=== PATIENT | female | born 1950 | race Caucasian/White ===

== ENCOUNTER 2017-11-24 10:20 | Observation (INO) ==
--- NOTE | 2017-11-24 10:40 | Emergency Department Note ---
Disposition Clinical Impression: Dyspnea on exertion, Weakness Chest pain Qualifiers: Chest pain type: unspecified Qualified Code(s): R07.9 - Chest pain, unspecified Disposition: Admitted As Inpatient Condition: Good Referrals: Sancho Lund MD [Primary Care Provider] - General Adult HPI - General Chief complaint: ED Shortness of Breath/Dyspnea Stated complaint: Cough Congestion / Aches All Over Time Seen by Provider: 11/24/17 10:35 Source: patient Mode of arrival: ambulatory Limitations: no limitations Nursing Notes Reviewed: Yes Vital Signs Reviewed: Yes - History of Present Illness HPI Narrative: Patient presents today for evaluation of weakness, generalized body aches including lower back pain, chest pain which she describes as a pressure, shortness of breath with exertion and associated cough that is nonproductive in nature. Symptoms started approximately a week ago. She was seen on Sunday at urgent care and placed on steroids and antibiotics. Patient has not had any significant improvement in her overall symptoms. Biggest concern for her is her generalized weakness and lack of energy. Nothing she has done has contributed to improvement in her symptoms. Her grandson was recently diagnosed with strep throat but no other specific sick contacts. Pain Scale: 6 - Related Data Home Medications Medication Instructions Recorded Confirmed Buspirone HCl [Buspar] 7.5 mg PO BID 11/24/17 11/24/17 Lisinopril-HCTZ 20-12.5 [Prinzide 1 tab PO DAILY 11/24/17 11/24/17 20-12.5] Omeprazole [PriLOSEC] 20 mg PO DAILY 11/24/17 11/24/17 Pravastatin Sodium [Pravachol] 20 mg PO HS 11/24/17 11/24/17 Sertraline [Zoloft] 100 mg PO DAILY 11/24/17 11/24/17 Trazodone HCl 100 mg PO HS 11/24/17 11/24/17 raNITIdine HCl [Zantac] 150 mg PO BID 11/24/17 11/24/17 Allergies Allergy/AdvReac Type Severity Reaction Status Date / Time morphine Allergy Anaphylaxis Verified 11/24/17 10:26 codeine AdvReac Nausea Verified 11/24/17 10:26 Review of Systems: General: Well appearing, nontoxic, no acute distress Head: Normocephalic Atraumatic Eyes: PERRL, EOMI ENT: Airway patent, no stridor Neck: supple, no meningismus Chest: Lungs clear to auscultation bilateral Cardiac: Regular rhythm Abdomen: soft, mild generalized tenderness, nondistended; no guarding, rebound, or tenderness to percussion Musculoskeletal: Calves symmetric, nontender, no palpable cord Skin: No rash, normal skin tone Neuro: Alert and Oriented to person, place, and time; No focal deficit, CN 2-12 symmetric and intact Past Medical History - Past Medical History Medical history: Reports: hyperlipidemia, hypertension Psychiatric history: Reports: anxiety Course - Reevaluation(s) Reevaluation #1: On reevaluation patient continues to have high blood pressure. On reevaluation of the patient's overall symptoms she does have abdominal tenderness is worse in the left lower quadrant. CAT scan ordered. Patient was given a dose of labetalol. Reevaluation #2: Patient's blood pressure improved to 180 systolic. She states the pressure in her chest has improved. Laboratory evaluation is unremarkable except for hypokalemia. Hypertensive urgency considered. CAT scan is pending. Family is upset about the weight in regards to having CAT scan performed. At this time wait secondary to resources and volume. They have been reassured and I will update them with CT scan results. Reevaluation #3: CT scan results with no significant findings relating to today. No significant infection or entrapment abdominal abnormality. Patient will need to undergo further testing for her unexplained weakness dyspnea and chest pain on exertion. Vital signs unstable within the emergency department. Vital Signs Temperature 98 F 11/24/17 10:26 Pulse Rate 75 11/24/17 10:26 Respiratory Rate 16 11/24/17 10:26 Blood Pressure 207/85 11/24/17 10:26 O2 Sat by Pulse Oximetry 97 11/24/17 10:26 Temperature 98 F 11/24/17 11:09 Pulse Rate 66 11/24/17 16:01 Respiratory Rate 14 11/24/17 16:01 Blood Pressure 174/72 11/24/17 16:01 O2 Sat by Pulse Oximetry 96 11/24/17 16:01 Oxygen Delivery Oxygen Delivery Room Air Medical Decision Making - Medical Records Medical records reviewed: Yes I reviewed the patient's medical records. - Lab Data Lab results reviewed: Yes I reviewed the patient's lab results. Result diagrams: 11/24/17 11:25 11/24/17 11:25 Lab Results 11/24/17 11/24/17 11/24/17 Range/Units 11:25 11:25 11:25 WBC 12.3 H (4.3-11.1) K/mcL RBC 4.31 (3.82-4.97) M/mcL Hgb 13.2 (11.5-15.4) g/dL Hct 38.9 (35.3-44.9) % MCV 90.3 (83.0-100.0) fL MCH 30.6 (28.0-33.3) pg MCHC 33.9 (31.6-35.5) g/dL RDW 12.6 (11.5-14.5) % Plt Count 299 (140-400) K/mcL MPV 9.5 (9.4-12.4) fL Immature Gran % 1.5 (0-4) % Seg Neutrophils % 75.8 % Lymphocytes % 16.0 % Monocytes % 5.1 % Eosinophils % 1.2 % Basophils % 0.4 % Neutrophils # 9.4 H (1.6-8.9) K/mcL Lymphocytes # 2.0 (0.6-4.6) K/mcL Monocytes # 0.6 (0.0-1.3) K/mcL Eosinophils # 0.2 (0.0-0.6) K/mcL Basophils # 0.1 (0.0-0.2) K/mcL Sodium 140 (136-145) mEq/L Potassium 3.0 L (3.5-5.1) mEq/L Chloride 103 (98-107) mEq/L Carbon Dioxide 28 (23-29) mEq/L BUN 14 (8-23) mg/dL Creatinine 0.63 (0.60-1.20) mg/dL Est GFR ( Amer) > 60 (> 60) Est GFR (Non-Af Amer) > 60 (> 60) BUN/Creatinine Ratio 22 (6-26) Glucose 144 H (70-105) mg/dL Calculated Osmolality 293 (280-300) Lactic Acid (0.5-2.2) mmol/L Calcium 9.5 (8.6-10.3) mg/dL Total Bilirubin 0.4 (0.3-1.0) mg/dL AST 14 (13-39) Units/L ALT 14 (7-52) Units/L Alkaline Phosphatase 91 (34-104) Units/L Troponin I < 0.03 (< 0.04) ng/mL Serum Total Protein 6.8 (6.4-8.9) g/dL Albumin 3.8 (3.5-5.7) g/dL Globulin 3.0 (2.4-3.5) g/dL Albumin/Globulin Ratio 1.3 (1.1-2.2) TSH 2.777 (0.340-5.600) mcIU/mL Urine Color Yellow (Yellow) Urine Clarity Clear (Clear) Urine pH 6.5 (5.0-8.0) pH Units Ur Specific [place] 1.013 (1.010-1.025) Urine Protein Negative (Neg-Trace) mg/dL Urine Glucose (UA) Normal (Normal) mg/dL Urine Ketones Negative (Negative) mg/dL Urine Blood Negative (Negative) Urine Nitrite Negative (Negative) Urine Bilirubin Negative (Negative) Urine Urobilinogen Normal (Normal) mg/dL Ur Leukocyte Esterase Negative (Negative) Ur Culture Indicated? NO (NO) 11/24/17 Range/Units 11:25 WBC (4.3-11.1) K/mcL RBC (3.82-4.97) M/mcL Hgb (11.5-15.4) g/dL Hct (35.3-44.9) % MCV (83.0-100.0) fL MCH (28.0-33.3) pg MCHC (31.6-35.5) g/dL RDW (11.5-14.5) % Plt Count (140-400) K/mcL MPV (9.4-12.4) fL Immature Gran % (0-4) % Seg Neutrophils % % Lymphocytes % % Monocytes % % Eosinophils % % Basophils % % Neutrophils # (1.6-8.9) K/mcL Lymphocytes # (0.6-4.6) K/mcL Monocytes # (0.0-1.3) K/mcL Eosinophils # (0.0-0.6) K/mcL Basophils # (0.0-0.2) K/mcL Sodium (136-145) mEq/L Potassium (3.5-5.1) mEq/L Chloride (98-107) mEq/L Carbon Dioxide (23-29) mEq/L BUN (8-23) mg/dL Creatinine (0.60-1.20) mg/dL Est GFR ( Amer) (> 60) Est GFR (Non-Af Amer) (> 60) BUN/Creatinine Ratio (6-26) Glucose (70-105) mg/dL Calculated Osmolality (280-300) Lactic Acid 2.3 H (0.5-2.2) mmol/L Calcium (8.6-10.3) mg/dL Total Bilirubin (0.3-1.0) mg/dL AST (13-39) Units/L ALT (7-52) Units/L Alkaline Phosphatase (34-104) Units/L Troponin I (< 0.04) ng/mL Serum Total Protein (6.4-8.9) g/dL Albumin (3.5-5.7) g/dL Globulin (2.4-3.5) g/dL Albumin/Globulin Ratio (1.1-2.2) TSH (0.340-5.600) mcIU/mL Urine Color (Yellow) Urine Clarity (Clear) Urine pH (5.0-8.0) pH Units Ur Specific [place] (1.010-1.025) Urine Protein (Neg-Trace) mg/dL Urine Glucose (UA) (Normal) mg/dL Urine Ketones (Negative) mg/dL Urine Blood (Negative) Urine Nitrite (Negative) Urine Bilirubin (Negative) Urine Urobilinogen (Normal) mg/dL Ur Leukocyte Esterase (Negative) Ur Culture Indicated? (NO) - Radiology Data Radiology results reviewed: Yes I reviewed the patient's radiology results. - EKG Data EKG #1 EKG attestation: Yes I reviewed and interpreted this EKG. EKG results narrative: EKG shows sinus rhythm with heart rate of 67. CA interval 164. QRS 100. QTC 414. Patient has inversions in the lateral leads. No old EKG for comparison. Limb leads were reversed. Patient has no T-wave inversions on repeat EKG.
[2017-11-24] MEDS ORDERED: 0.9 % Sodium Chloride 1,000 ML IVC ONE (11:01)
[2017-11-24 11:42] LABS: Basophils # 0.1 K/mcL (0.0-0.2); Basophils % 0.4 %; Eosinophils # 0.2 K/mcL (0.0-0.6); Eosinophils % 1.2 %; Hematocrit 38.9 % (35.3-44.9); Hemoglobin 13.2 g/dL (11.5-15.4); Immature Granulocytes % 1.5 % (0-4); Mean Corpuscular HGB Conc 33.9 g/dL (31.6-35.5); Mean Corpuscular Hemoglobin 30.6 pg (28.0-33.3); Mean Corpuscular Volume 90.3 fL (83.0-100.0); Mean Platelet Volume 9.5 fL (9.4-12.4); Monocytes # 0.6 K/mcL (0.0-1.3); Monocytes % 5.1 %; Neutrophils # 9.4 K/mcL (1.6-8.9); Platelet Count 299 K/mcL (140-400); Red Blood Count 4.31 M/mcL (3.82-4.97); Red Cell Distribution Width 12.6 % (11.5-14.5); Segmented Neutrophils % 75.8 %
[2017-11-24 11:44] LABS: Bilirubin,Urine Negative (Negative); Blood,Urine Negative (Negative); Clarity,Urine Clear (Clear); Color,Urine Yellow (Yellow); Glucose,Urine (UA) Normal (Normal); Ketones,Urine Negative (Negative); Leukocyte Esterase,Urine Negative (Negative); Nitrite,Urine Negative (Negative); PH,Urine 6.5 pH Units (5.0-8.0); Protein,Urine Negative (Neg-Trace); Specific Gravity,Urine 1.013 (1.010-1.025); Urobilinogen,Urine Normal (Normal)
[2017-11-24 12:04] LABS: Alanine Aminotransferase 14 Units/L (7-52); Albumin 3.8 g/dL (3.5-5.7); Albumin/Globulin Ratio 1.3 (1.1-2.2); Alkaline Phosphatase 91 Units/L (34-104); Aspartate Amino Transferase 14 Units/L (13-39); BUN/Creatinine Ratio 22 (6-26); Bilirubin,Total 0.4 mg/dL (0.3-1.0); Blood Urea Nitrogen 14 mg/dL (8-23); Calcium 9.5 mg/dL (8.6-10.3); Carbon Dioxide 28 mEq/L (23-29); Chloride 103 mEq/L (98-107); Glucose 144 mg/dL (70-105); Osmolality,Calculated 293 (280-300); Sodium 140 mEq/L (136-145); Total Protein 6.8 g/dL (6.4-8.9); Troponin I < 0.03 ng/mL (< 0.04); eGFR For Non-African Americans > 60 (> 60)
[2017-11-24] MEDS ORDERED: *HR* Labetalol 100 MG/20 ML MDV IVP STA (12:29)
[2017-11-24] MEDS ORDERED: Isovue-370 500 ML INFUS..BTL IV ONE (12:41)
[2017-11-24 12:58] LABS: Thyroid Stimulating Hormone 2.777 mcIU/mL (0.340-5.600)
[2017-11-24] MEDS ORDERED: Naloxone 0.4 MG/ML INJ IVP PRN (17:54)
--- NOTE | 2017-11-24 17:59 | Internal Med History&Physical ---
Date of Encounter: 11/24/17 Time of Encounter: 17:59 Internal Medicine - H&P: HPI Chief complaint: Weakness Admitted From: Home Plans for Post Hospital Care: Home History of present illness: Ms. Emanuel is a 67 year old female with HTN who presented to the ER with flu- like symptoms , myalgias, artharalgias, rhinorrhea. She states she was at her PCP's office earlier in the week and received a steroid and antibiotic shot. She has since not been feeling better, hence her improvement to the ER She denies sick contacts, she has no fever or chills, her grandson had strep throat recently, but she denies sore throat She reports compliance with her blood pressure medication but blood pressure remained uncontrolled She denies chest pressure but has a dry cough and has pleuritic chest pain when she coughs Other ROS unremarkable Work up in ER unremarkable, save for hypokalemia She will be placed on observation for bronchitic, flu-like symptoms and uncontrolled HTN She is full code Past Med Surg Social Fam HX - Past Medical History Medical history: GERD, hyperlipidemia, hypertension Psychiatric history: anxiety, depression - Past Surgical History Additional surgical history: Right Hand Carpel Tunnel - Social History Smoking Status: Never smoker Alcohol use: none Drug use: none Internal Medicine - H&P: Meds Buspirone HCl [Buspar] 7.5 mg PO BID 11/24/17 [History] Lisinopril-HCTZ 20-12.5 [Prinzide 20-12.5] 1 tab PO DAILY 11/24/17 [History] Omeprazole [PriLOSEC] 20 mg PO DAILY 11/24/17 [History] Pravastatin Sodium [Pravachol] 20 mg PO HS 11/24/17 [History] Sertraline [Zoloft] 100 mg PO DAILY 11/24/17 [History] Trazodone HCl 100 mg PO HS 11/24/17 [History] raNITIdine HCl [Zantac] 150 mg PO BID 11/24/17 [History] 3 Allergy/AdvReac Type Severity Reaction Status Date / Time morphine Allergy Anaphylaxis Verified 11/24/17 10:26 codeine AdvReac Nausea Verified 11/24/17 10:26 All Systems PM: A 10-system review of systems was performed and is negative for pertinent findings except as documented above in the HPI. - Constitutional Constitutional: as per HPI - EENT Eyes: as per HPI Ears: as per HPI Nose, mouth and throat: as per HPI - Cardiovascular Cardiovascular ROS IM: as per HPI - Respiratory Respiratory: as per HPI - Gastrointestinal Gastrointestinal: as per HPI - Genitourinary Genitourinary: as per HPI - Musculoskeletal Musculoskeletal ROS IM: as per HPI - Integumentary Integumentary IM: as per HPI - Neurological Neurological ROS: as per HPI - Hematologic/Lymphatic Hematologic/Lymphatic: as per HPI - Constitutional Vitals: Temp Pulse Resp BP Pulse Ox 98 F 66 14 174/72 96 11/24/17 11:09 11/24/17 16:01 11/24/17 16:01 11/24/17 16:01 11/24/17 16:01 General appearance: Present: A&O X 3, pleasant, no acute distress Exam: see below - Head Head exam: Present: atraumatic, normocephalic - Eye Eye exam: Present: PERRL, conjuntiva pink, sclera anicteric Pupils: Present: PERRL - Neck Neck exam general surgery: Present: supple, trachea midline. Absent: lymphadenopathy - Respiratory Respiratory exam: Present: CTAB. Absent: accessory muscle use, rales, rhonchi, wheezes - Cardiovascular Cardiovascular exam: Present: RRR, +S1, +S2. Absent: diastolic murmur, gallop, rubs, systolic murmur - GI/Abdominal GI/Abdominal exam: Present: normal bowel sounds, soft, no peritoneal signs. Absent: distended, tenderness - Extremities Exam Extremities exam: Present: warm, radial pulses palpable and symmetrical. Absent : calf tenderness, cyanotic, pedal edema - Neurological Exam Neurological exam: Present: CN II-XII intact, oriented X3, no focal deficits. Absent: pronater drift, facial droop, speech deficit - Skin Skin exam: Present: dry, intact Internal Med - H&P Results - Labs CBC & Chem 7: 11/24/17 11:25 11/24/17 11:25 Labs: Short CBC 11/24/17 Range/Units 11:25 WBC 12.3 H (4.3-11.1) K/mcL Hgb 13.2 (11.5-15.4) g/dL Hct 38.9 (35.3-44.9) % Plt Count 299 (140-400) K/mcL Neutrophils # 9.4 H (1.6-8.9) K/mcL BMP 11/24/17 11:25 Sodium 140 Potassium 3.0 L Chloride 103 Carbon Dioxide 28 BUN 14 Creatinine 0.63 Glucose 144 H Calcium 9.5 Cardiac Enzymes 11/24/17 Range/Units 11:25 Troponin I < 0.03 (< 0.04) ng/mL Liver Function 11/24/17 Range/Units 11:25 Total Bilirubin 0.4 (0.3-1.0) mg/dL AST 14 (13-39) Units/L ALT 14 (7-52) Units/L Alkaline Phosphatase 91 (34-104) Units/L Albumin 3.8 (3.5-5.7) g/dL Urine 11/24/17 Range/Units 11:25 Urine Color Yellow (Yellow) Urine Clarity Clear (Clear) Urine pH 6.5 (5.0-8.0) pH Units Ur Specific [place] 1.013 (1.010-1.025) Urine Protein Negative (Neg-Trace) mg/dL Urine Glucose (UA) Normal (Normal) mg/dL - Impressions ITS Impressions Chest X-Ray 11/24/17 11:01 IMPRESSION: No acute pneumonia. D/ / 11/24/2017 13:32:30 Edgardo Valenzuela MD / rebecca Interpreting Provider: Edgardo Valenzuela MD Abdomen/Pelvis CT 11/24/17 12:41 IMPRESSION: No acute findings. Large small bowel diverticula are suspected within the left mid abdomen. These areas do not appear to be in continuity with the colon. Fecal content within these suggests slow transit. Further evaluation with CT enterography or MR enterography may be helpful. D/ / Leandro Xavier MD / Leandro Xavier MD Interpreting Provider: Leandro Xavier MD - Assessment and plan (1) Hypokalemia Current Visit: Yes Status: Acute Assessment and plan: replaced po, check with a.m labs (2) HTN (hypertension) Current Visit: Yes Status: Chronic Assessment and plan: uncontrolled Add norvasc to home regimen, continue home meds Qualifiers: Hypertension type: essential hypertension Qualified Code(s): I10 - Essential (primary) hypertension (3) Chest pain Current Visit: Yes Status: Acute Assessment and plan: associated with dry cough CXR unremarkable Add Azithromycin for bronchitis EKG unremarkable Check Flu swab Trend trops ECHo a.m Qualifiers: Chest pain type: chest pain on breathing Qualified Code(s): R07.1 - Chest pain on breathing; R07.81 - Pleurodynia (4) Weakness Current Visit: Yes Status: Acute Assessment and plan: Improving COntinue to monitor - Time Spent With Patient Total time spent is greater than 50% in coordination of care (as documented) at patient's floor/unit and/or counseling patient:
[2017-11-24] MEDS: amLODIPine 5 MG TABLET PO SCH (21:04)
[2017-11-24] MEDS: Famotidine 20 MG TABLET PO SCH (21:04)
[2017-11-24] MEDS: Azithromycin 250 MG TABLET PO SCH (21:04)
[2017-11-24] MEDS: traZODone 50 MG TABLET PO SCH (21:04)
[2017-11-25] MEDS: amLODIPine 5 MG TABLET PO SCH (07:53)
[2017-11-25] MEDS: Lisinopril-HCTZ 20-12.5mg TABLET PO SCH (07:53)
[2017-11-25] MEDS: Famotidine 20 MG TABLET PO SCH ×2 (07:53→16:48)
[2017-11-25 07:55] LABS: BUN/Creatinine Ratio 29 (6-26); Blood Urea Nitrogen 15 mg/dL (8-23); Calcium 9.1 mg/dL (8.6-10.3); Carbon Dioxide 29 mEq/L (23-29); Chloride 105 mEq/L (98-107); Chol/HDL Ratio 2.7 (0-4.9); Cholesterol 153 mg/dL (< 200); Glucose 119 mg/dL (70-105); HDL Cholesterol 56 mg/dL (40-59); LDL Cholesterol,Calculated 69 mg/dL (0-99); Osmolality,Calculated 292 (280-300); Potassium 3.2 mEq/L (3.5-5.1); Sodium 140 mEq/L (136-145); Triglycerides 140 mg/dL (< 150); eGFR For Non-African Americans > 60 (> 60)
--- NOTE | 2017-11-25 11:01 | Internal Med Progress Note ---
Hospitalist Progress Note - Encounter Date of Encounter: 11/25/17 Time of Encounter: 11:00 - Subjective Interval History: 67 F placed on observation for uncontrolled HTN, chest pain and flu-like symptoms She had 4 episodes of watery diarrhea this a.m She denies abdominal discomfort, no chest pain and her flu-like symptoms have imprved trop was negative X2, ECHO is pending We will send stool for GI panel - Exam Vitals: Temp Pulse Resp BP Pulse Ox 98.3 F 67 18 175/80 95 11/25/17 07:50 11/25/17 07:50 11/25/17 07:50 11/25/17 07:50 11/25/17 07:50 Exam: Constitutional: VSS, not in any form of distress Eyes exam: Sclera white, conjunctiva clear, no lid lag, [place]. ENT exam: Moist oral mucosa Respiratory exam: CTAB Cardiovascular exam: RRR, +S1, +S2. no murmur, gallop, rubs. No chest wall tenderness GI/Abdominal exam: Soft, not tender, BS present in all extremities Musculoskeletal exam: full ROM, no atrophy or deformity noted. no edema or cynosis, warm, pulses palpable and symmetrical in UE/LE. no calf tenderness. Neurological exam: AO X3, CN II-XII grossly intact, grossly normal motor and sensory exam. Normal muscle tone and reflexes. Skin exam: No skin rash, lesions or ulcers noted. no purpura or ecchymosis. Pych: Good insight and judgment. Intact memory. AOx3. anxious affect - Assessment and Plan (1) Hypokalemia Current Visit: Yes Status: Acute Assessment and Plan: replaced po, check with a.m labs (2) HTN (hypertension) Current Visit: Yes Status: Chronic Assessment and Plan: uncontrolled COntinue Lisinopril-HCTS, Norvasc (3) Chest pain Current Visit: Yes Status: Acute Assessment and Plan: associated with dry cough CXR unremarkable Continue Azithromycin for bronchitis EKG unremarkable Flu negative, trops negative Follow ECHO (4) Weakness Current Visit: Yes Status: Acute Assessment and Plan: Improving COntinue to monitor - Time Spent with Patient Total time spent is greater than 50% in coordination of care (as documented) at patient's floor/unit and/or counseling patient: Internal Medicine: Result - Labs CBC & Chem 7: 11/24/17 11:25 11/25/17 07:02 Labs: [facility] [place] 11/25/17 07:02 Sodium 140 Potassium 3.2 L Chloride 105 Carbon Dioxide 29 BUN 15 Creatinine 0.51 L Glucose 119 H Calcium 9.1 Consult Discharge Plan - Plan Referrals: Sancho Lund MD [Primary Care Provider] - (2) HTN (hypertension) Qualifiers: Hypertension type: essential hypertension Qualified Code(s): I10 - Essential (primary) hypertension (3) Chest pain Qualifiers: Chest pain type: chest pain on breathing Qualified Code(s): R07.1 - Chest pain on breathing; R07.81 - Pleurodynia
[2017-11-25] MEDS: Azithromycin 250 MG TABLET PO SCH (18:01)
[2017-11-25] MEDS: traZODone 50 MG TABLET PO SCH (20:39)
[2017-11-26 06:41] VITALS: BP 149/72
[2017-11-26 07:35] LABS: BUN/Creatinine Ratio 32 (6-26); Blood Urea Nitrogen 20 mg/dL (8-23); Calcium 9.2 mg/dL (8.6-10.3); Carbon Dioxide 31 mEq/L (23-29); Chloride 106 mEq/L (98-107); Glucose 115 mg/dL (70-105); Osmolality,Calculated 296 (280-300); Potassium 3.9 mEq/L (3.5-5.1); Sodium 141 mEq/L (136-145); eGFR For Non-African Americans > 60 (> 60)
[2017-11-26] MEDS: amLODIPine 5 MG TABLET PO SCH (09:39)
[2017-11-26] MEDS: Lisinopril-HCTZ 20-12.5mg TABLET PO SCH (09:39)
[2017-11-26] MEDS: Famotidine 20 MG TABLET PO SCH (09:40)
--- NOTE | 2017-11-26 10:40 | Discharge Summary ---
- NOTES TO OUTPATIENT PROVIDER Notes to Outpatient Provider: Patient was admitted to observation for hypertensive urgency associated with flulike symptoms. Incidental discovery of watery diarrhea with inpatient with hypokalemia. Chest x-ray, EKG and troponin negative. ECHO was unremarkable withLVH, preserved EF and normal wall motions. Head CT unremarkable. The patient has no neurologic symptoms nor deficits. Likely viral bronchitis with diarrhea. Diarrhea has resolved, stool was not liquid enough to test for C.Diff. The patient remained afebrile, CBC and chemistry within normal limits throughout admission. Blood pressure is better controlled with addition of Norvasc to her home regimen. Discharged home with 2 more days of azithromycin for bronchitis. Follow-up with primary care physician. Orders not resulted at time of discharge: Pending orders 11/25/17 10:57 GI Panel,Stool [MOLMIC] Stat Date of Encounter: 11/26/17 Time of Encounter: 10:39 - Discharge Diagnosis (1) Hypokalemia Priority: Primary Status: Resolved (2) HTN (hypertension) Priority: Secondary Status: Chronic Qualifiers: Hypertension type: essential hypertension Qualified Code(s): I10 - Essential (primary) hypertension (3) Chest pain Priority: Primary Status: Resolved Qualifiers: Chest pain type: chest pain on breathing Qualified Code(s): R07.1 - Chest pain on breathing; R07.81 - Pleurodynia (4) Weakness Priority: Primary Status: Resolved Hospital course: Ms. Emanuel is a 67 year old female Patient was admitted to observation for hypertensive urgency associated with flulike symptoms. Incidental discovery of watery diarrhea with inpatient with hypokalemia. Chest x-ray, EKG and troponin negative. ECHO was unremarkable withLVH, preserved EF and normal wall motions. Head CT unremarkable. The patient has no neurologic symptoms nor deficits. Likely viral bronchitis with diarrhea. Diarrhea has resolved, stool was not liquid enough to test for C.Diff. Abdomen CT on arrival showed diverticulosis, no diverticulitis The patient remained afebrile, CBC and chemistry within normal limits throughout admission. Blood pressure is better controlled with addition of Norvasc to her home regimen. Discharged home with 2 more days of azithromycin for bronchitis. She is educated to represent to the ER if she develops fever, abdominal symptoms or recurrent chest pain, or diarrhea 4 episodes per day. Follow-up with primary care physician. Discharge discussed with: patient, nurse - Time Spent with Patient Total time spent providing and/or coordinating discharge services: Less than 30 minutes - Discharge Medications Prescriptions: Amlodipine Besylate 10 mg PO DAILY #30 tablet Azithromycin [Zithromax] 500 mg PO Q24H 3 Days #6 tablet Home Medications: Buspirone HCl [Buspar] 7.5 mg PO BID 11/24/17 [History] Lisinopril-HCTZ 20-12.5 [Prinzide 20-12.5] 1 tab PO DAILY 11/24/17 [History] Omeprazole [PriLOSEC] 20 mg PO DAILY 11/24/17 [History] Pravastatin Sodium [Pravachol] 20 mg PO HS 11/24/17 [History] Sertraline [Zoloft] 100 mg PO DAILY 11/24/17 [History] Trazodone HCl 100 mg PO HS 11/24/17 [History] raNITIdine HCl [Zantac] 150 mg PO BID 11/24/17 [History] Amlodipine Besylate 10 mg PO DAILY #30 tablet 11/26/17 [Rx] Azithromycin [Zithromax] 500 mg PO Q24H 3 Days #6 tablet 11/26/17 [Rx] Allergies/Adverse Reactions: 3 Allergy/AdvReac Type Severity Reaction Status Date / Time morphine Allergy Anaphylaxis Verified 11/24/17 10:26 codeine AdvReac Nausea Verified 11/24/17 10:26 Date of admission: 11/24/17 19:05 Primary care physician: Sancho Lund MD Discharging clinician: Bradford Hardwick Anticipated date of discharge: 11/26/17 - Constitutional Vitals: Temp Pulse Resp BP Pulse Ox 98.0 F 71 15 149/72 94 11/26/17 06:40 11/26/17 06:40 11/26/17 06:40 11/26/17 06:40 11/26/17 06:40 General appearance: Present: A&O X 3, pleasant, no acute distress Exam: see below - Head Head exam: Present: atraumatic, normocephalic - Eye Eye exam: Present: PERRL, conjuntiva pink, sclera anicteric Pupils: Present: PERRL - Neck Neck exam general surgery: Present: supple, trachea midline. Absent: lymphadenopathy - Respiratory Respiratory exam: Present: CTAB. Absent: accessory muscle use, rales, rhonchi, wheezes - Cardiovascular Cardiovascular exam: Present: RRR, +S1, +S2. Absent: diastolic murmur, gallop, rubs, systolic murmur - GI/Abdominal GI/Abdominal exam: Present: normal bowel sounds, soft, no peritoneal signs. Absent: distended, tenderness - Extremities Exam Extremities exam: Present: warm, radial pulses palpable and symmetrical. Absent : calf tenderness, cyanotic, pedal edema - Neurological Exam Neurological exam: Present: CN II-XII intact, oriented X3, no focal deficits. Absent: pronater drift, facial droop, speech deficit - Skin Skin exam: Present: dry, intact - Patient Status Disposition: Home, Self-Care Condition: Good Functional capacity at discharge: independent ambulation Overall status at discharge: patient is progressing back to baseline - Discharge Instructions Follow Up With: Sancho Lund MD [Primary Care Provider] - 12/03/17 9:00 am Forms: ED Satisfaction Letter - Diet and Activity Activity: resume usual activities as tolerated Diet: low salt diet
--- NOTE | 2017-11-26 17:29 | Electrocardiograph Report ---
[address] [place], [place] [address] Test Date: 2017-11-24 Pat Name: Ebonie Emanuel Department: [id number] Room: 3B48 Gender: F [employer] Technician: : [id number] Requested By: [id number] Order Number: [id number] Reading MD: Mita Saul Measurements Intervals [place] Rate: 68 P: 49 [place]: 161 QRS: 38 QRSD: 105 T: 42 QT: 413 QTc: 440 Interpretive Statements Sinus rhythm Electronically Signed On 11-26-2017 17:27:26 EDT by Mita Saul
== END 2017-11-26 12:25 | disposition home or self-care (01) ==
LOC: EMEROOARM 10:20 → 3BNU 10:20
PROVIDERS: ADMIT Internal Medicine; ATTEND Internal Medicine

== ENCOUNTER 2021-04-28 06:39 | Observation (INO) ==
[~2021-04-28 06:39] MED LIST: Povidone-Iodine 45 ML, Sodium Chloride IRRigation 1,000 ML IR ONE; TOTAL JOINT MIXTURE (100ML) INTRAART ONE
[2021-04-28] MEDS ORDERED: CeFAZolin Syr 2,000MG/20 ML 2,000 MG/20 ML SYRINGE IVPB ONE (07:09)
[2021-04-28] MEDS ORDERED: Ringers Solution, Lactated 1,000 ML IVC SCH ×2 (07:15→11:45)
[2021-04-28] MEDS ORDERED: ROPIVACAINE/PF/NS 0.25% 1 EACH SYRINGE INTRAART ONE (08:04)
[2021-04-28] MEDS ORDERED: Ropivacaine/PF 0.5% 30 ML VIAL ONE (08:04)
[2021-04-28] MEDS ORDERED: Promethazine 6.25 MG in Water for inj. (sterile) 20 ML IVPB PRN (08:06)
[2021-04-28] MEDS ORDERED: *HR* FentaNYL (PF) 100 MCG/2 ML VIAL IVP PRN (08:06)
[2021-04-28] MEDS ORDERED: Ondansetron 4 MG/2 ML VIAL IVP PRN ×3 (08:06→12:38)
[2021-04-28] MEDS ORDERED: *HR* FentaNYL (PF) 100 MCG/2 ML VIAL ONE (08:07)
[2021-04-28] MEDS ORDERED: *HR* Midazolam HCl 2 MG/2 ML VIAL ONE (08:07)
[2021-04-28] MEDS ORDERED: Ondansetron 4 MG/2 ML VIAL ONE (08:36)
[2021-04-28] MEDS ORDERED: Lidocaine -MPF 2% 5 ML VIAL ONE (08:36)
[2021-04-28] MEDS ORDERED: Tranexamic Acid 1,000 MG/10 ML VIAL ONE (09:21)
[2021-04-28] MEDS ORDERED: Naloxone 0.4 MG/ML INJ IVP PRN ×2 (11:33→12:38)
[2021-04-28] MEDS ORDERED: Morphine Sulfate 2 MG/ML SYRINGE IVP PRN (11:33)
[2021-04-28] MEDS ORDERED: *HR* Promethazine 25 MG/ML VIAL IM PRN ×2 (11:33→12:38)
[2021-04-28] MEDS ORDERED: MOM Conc 10 ML UD.LIQ PO PRN ×2 (11:33→12:38)
[2021-04-28] MEDS ORDERED: *HR* OxyCODONE Immed Rel 5 MG TABLET PO PRN (11:33)
[2021-04-28] MEDS ORDERED: Sennosides 8.6 MG TABLET PO PRN ×2 (11:33→12:38)
[2021-04-28] MEDS: *HR* OxyCODONE Immed Rel 5 MG TABLET PO PRN ×2 (13:51→21:17)
[2021-04-28] MEDS: Ringers Solution, Lactated 1,000 ML IVC SCH (14:00)
[2021-04-28] MEDS ORDERED: CeFAZolin 2 GM/120 ML BAG IVPB SCH (16:00)
[2021-04-28] MEDS: Ascorbic Acid 500 MG TABLET PO SCH (16:18)
[2021-04-28] MEDS: CeFAZolin 2 GM/120 ML BAG IVPB SCH (16:21)
[2021-04-28] MEDS ORDERED: Ascorbic Acid 500 MG TABLET PO SCH (17:00)
[2021-04-28] MEDS: traZODone 50 MG TABLET PO SCH (20:49)
[2021-04-28] MEDS ORDERED: traZODone 50 MG TABLET PO SCH (21:00)
[2021-04-28] MEDS: Carbidopa/Levodopa 25/100 TABLET PO SCH (21:16)
[2021-04-29] MEDS: CeFAZolin 2 GM/120 ML BAG IVPB SCH (00:08)
[2021-04-29] MEDS: *HR* OxyCODONE Immed Rel 5 MG TABLET PO PRN ×4 (03:38→21:30)
[2021-04-29 04:46] LABS: Basophils % 0.2 %; Eosinophils # 0.1 K/mcL (0.0-0.6); Eosinophils % 0.5 %; Hematocrit 32.5 % (35.3-44.9); Hemoglobin 10.2 g/dL (11.5-15.4); Immature Granulocytes % 0.6 % (0-4); Lymphocytes # 1.6 K/mcL (0.6-4.6); Lymphocytes % 14.9 %; Mean Corpuscular HGB Conc 31.4 g/dL (31.6-35.5); Mean Corpuscular Volume 92.3 fL (83.0-100.0); Mean Platelet Volume 9.8 fL (9.4-12.4); Monocytes # 0.9 K/mcL (0.0-1.3); Neutrophils # 8.3 K/mcL (1.6-8.9); Platelet Count 274 K/mcL (140-400); Red Blood Count 3.52 M/mcL (3.82-4.97); Segmented Neutrophils % 75.8 %; White Blood Count 10.9 K/mcL (4.3-11.1)
[2021-04-29 04:59] LABS: BUN/Creatinine Ratio 20 (6-26); Blood Urea Nitrogen 12 mg/dL (8-23); Calcium 8.7 mg/dL (8.6-10.3); Carbon Dioxide 28 mEq/L (23-29); Chloride 105 mEq/L (98-107); Glucose 110 mg/dL (70-105); Osmolality,Calculated 284 (280-300); Potassium 4.1 mEq/L (3.5-5.1); Sodium 137 mEq/L (136-145); eGFR For African Americans > 60 (> 60); eGFR For Non-African Americans > 60 (> 60)
[2021-04-29] MEDS: Ascorbic Acid 500 MG TABLET PO SCH ×2 (08:44→16:40)
[2021-04-29] MEDS: Multivit/Ca/Min/Fe/FA 1 TAB TABLET PO SCH (08:44)
[2021-04-29] MEDS: FLUoxetine 20 MG CAPSULE PO SCH (08:45)
[2021-04-29] MEDS: Lisinopril-HCTZ 20-12.5mg TABLET PO SCH (08:45)
[2021-04-29] MEDS: Celecoxib 200 MG CAPSULE PO SCH (08:45)
[2021-04-29] MEDS: amLODIPine 5 MG TABLET PO SCH (08:45)
[2021-04-29] MEDS: BuPROPion XL (24 HR) 150 MG TABLET PO SCH (08:45)
[2021-04-29] MEDS: Carbidopa/Levodopa 25/100 TABLET PO SCH ×3 (08:46→21:31)
[2021-04-29] MEDS ORDERED: amLODIPine 5 MG TABLET PO SCH (09:00)
[2021-04-29] MEDS ORDERED: Lisinopril-HCTZ 20-12.5mg TABLET PO SCH (09:00)
[2021-04-29] MEDS ORDERED: FLUoxetine 20 MG CAPSULE PO SCH (09:00)
[2021-04-29] MEDS ORDERED: Celecoxib 200 MG CAPSULE PO SCH (09:00)
[2021-04-29] MEDS ORDERED: Multivit/Ca/Min/Fe/FA 1 TAB TABLET PO SCH (09:00)
[2021-04-29] MEDS ORDERED: BuPROPion XL (24 HR) 150 MG TABLET PO SCH (09:00)
[2021-04-29] MEDS ORDERED: Aspirin Enteric Coated 325 MG Tablet PO SCH (11:37)
[2021-04-29] MEDS: Aspirin Enteric Coated 325 MG Tablet PO SCH ×2 (13:31→21:30)
[2021-04-29] MEDS: traZODone 50 MG TABLET PO SCH (21:31)
[2021-04-30 03:16] LABS: Basophils % 0.4 %; Eosinophils # 0.9 K/mcL (0.0-0.6); Eosinophils % 7.8 %; Hematocrit 28.8 % (35.3-44.9); Hemoglobin 9.3 g/dL (11.5-15.4); Immature Granulocytes % 0.6 % (0-4); Lymphocytes # 2.9 K/mcL (0.6-4.6); Lymphocytes % 26.3 %; Mean Corpuscular HGB Conc 32.3 g/dL (31.6-35.5); Mean Corpuscular Hemoglobin 30.1 pg (28.0-33.3); Mean Corpuscular Volume 93.2 fL (83.0-100.0); Mean Platelet Volume 9.6 fL (9.4-12.4); Monocytes % 9.6 %; Platelet Count 233 K/mcL (140-400); Red Blood Count 3.09 M/mcL (3.82-4.97); Red Cell Distribution Width 13.1 % (11.5-14.5); Segmented Neutrophils % 55.3 %; White Blood Count 10.8 K/mcL (4.3-11.1)
[2021-04-30 03:34] LABS: BUN/Creatinine Ratio 20 (6-26); Blood Urea Nitrogen 13 mg/dL (8-23); Calcium 8.5 mg/dL (8.6-10.3); Carbon Dioxide 33 mEq/L (23-29); Chloride 104 mEq/L (98-107); Glucose 123 mg/dL (70-105); Osmolality,Calculated 289 (280-300); Potassium 4.2 mEq/L (3.5-5.1); Sodium 139 mEq/L (136-145); eGFR For African Americans > 60 (> 60); eGFR For Non-African Americans > 60 (> 60)
[2021-04-30] MEDS: *HR* OxyCODONE Immed Rel 5 MG TABLET PO PRN ×3 (05:25→21:25)
[2021-04-30] MEDS: FLUoxetine 20 MG CAPSULE PO SCH (08:32)
[2021-04-30] MEDS: Lisinopril-HCTZ 20-12.5mg TABLET PO SCH (08:32)
[2021-04-30] MEDS: Ascorbic Acid 500 MG TABLET PO SCH ×2 (08:34→16:30)
[2021-04-30] MEDS: Aspirin Enteric Coated 325 MG Tablet PO SCH ×2 (08:34→21:26)
[2021-04-30] MEDS: Carbidopa/Levodopa 25/100 TABLET PO SCH ×3 (08:34→21:26)
[2021-04-30] MEDS: amLODIPine 5 MG TABLET PO SCH (08:34)
[2021-04-30] MEDS: Multivit/Ca/Min/Fe/FA 1 TAB TABLET PO SCH (08:35)
[2021-04-30] MEDS: Celecoxib 200 MG CAPSULE PO SCH (08:35)
[2021-04-30] MEDS: BuPROPion XL (24 HR) 150 MG TABLET PO SCH (08:35)
[2021-04-30] MEDS: Ringers Solution, Lactated 1,000 ML IVC SCH ×2 (17:51→17:52)
[2021-04-30] MEDS: traZODone 50 MG TABLET PO SCH (21:25)
[2021-05-01] MEDS: *HR* OxyCODONE Immed Rel 5 MG TABLET PO PRN ×3 (04:23→20:44)
[2021-05-01] MEDS: Carbidopa/Levodopa 25/100 TABLET PO SCH ×3 (08:05→20:45)
[2021-05-01] MEDS: amLODIPine 5 MG TABLET PO SCH (08:06)
[2021-05-01] MEDS: Celecoxib 200 MG CAPSULE PO SCH (08:06)
[2021-05-01] MEDS: Lisinopril-HCTZ 20-12.5mg TABLET PO SCH (08:07)
[2021-05-01] MEDS: FLUoxetine 20 MG CAPSULE PO SCH (08:07)
[2021-05-01] MEDS: BuPROPion XL (24 HR) 150 MG TABLET PO SCH (08:07)
[2021-05-01] MEDS: Ascorbic Acid 500 MG TABLET PO SCH ×2 (08:07→16:46)
[2021-05-01] MEDS: Multivit/Ca/Min/Fe/FA 1 TAB TABLET PO SCH (08:08)
[2021-05-01] MEDS: Aspirin Enteric Coated 325 MG Tablet PO SCH ×2 (08:09→20:45)
[2021-05-01] MEDS: traZODone 50 MG TABLET PO SCH (20:44)
[2021-05-02] MEDS: *HR* OxyCODONE Immed Rel 5 MG TABLET PO PRN ×3 (05:28→14:33)
[2021-05-02] MEDS: Lisinopril-HCTZ 20-12.5mg TABLET PO SCH (09:49)
[2021-05-02] MEDS: Celecoxib 200 MG CAPSULE PO SCH (09:49)
[2021-05-02] MEDS: FLUoxetine 20 MG CAPSULE PO SCH (09:49)
[2021-05-02] MEDS: Multivit/Ca/Min/Fe/FA 1 TAB TABLET PO SCH (09:50)
[2021-05-02] MEDS: Aspirin Enteric Coated 325 MG Tablet PO SCH (09:50)
[2021-05-02] MEDS: Carbidopa/Levodopa 25/100 TABLET PO SCH ×2 (09:50→14:34)
[2021-05-02] MEDS: amLODIPine 5 MG TABLET PO SCH (09:50)
[2021-05-02] MEDS: BuPROPion XL (24 HR) 150 MG TABLET PO SCH (09:50)
[2021-05-02] MEDS: Ascorbic Acid 500 MG TABLET PO SCH (09:54)
[2021-05-02 10:51] VITALS: BP 111/69; PULSE 76; TEMP 98.6; O2SAT 89
[2021-05-02 16:29] LABS: Influenza A PCR Negative (Negative); Influenza B PCR Negative (Negative); Resp. Syncytial Virus PCR Negative (Negative)
[2021-05-02 16:33] LABS: SARS-CoV-2 by PCR (In House) Negative (Negative)
== END 2021-05-02 16:52 ==
LOC: 4WAOSI 06:39 → SDCAOSI 06:39 → 4WAOSI 12:11
PROVIDERS: ADMIT Orthopaedic Surgery; ATTEND Orthopaedic Surgery